=== PATIENT | female | born 1995 ===

== ENCOUNTER 2025-03-23 09:00 | Inpatient (IN) | payer OTHER ==
[~2025-03-23] VITALS: Ht 165.1 cm; Wt 60.3 kg
[2025-03-23 13:10] VITALS: BP 94/59
[2025-03-23] MEDS ORDERED: LAMO25 PO (13:26)
[2025-03-23] MEDS ORDERED: LORA.5 PO (13:27)
[2025-03-23] MEDS ORDERED: ONDA4 PO (13:27)
[2025-03-23 14:10] VITALS: BP 94/59
[2025-03-23] MEDS ORDERED: Aluminum Hydroxide 320MG/5ML 473 ML PO PRN (15:00)
[2025-03-23] MEDS ORDERED: FLU VACC TS2025-26(6MOS UP)/PF 45 MCG/0.5 ML SYRINGE IM SCH (15:00)
[2025-03-23] MEDS ORDERED: Ondansetron 4 MG SoluTab MM PRN (15:05)
[2025-03-23] MEDS ORDERED: Polyethylene Glycol 3350 17 gm PO PRN (15:05)
--- NOTE | 2025-03-23 15:16 | NUR ---
ADMISSION NOTE: PT ARRIVED TO [facility] VIA TRANSPORT WITH [employer]. BELONGINGS CHECKED IN AND SECURED BY OSWALDO VOSS. 2 RN SKIN CHECK COMPLETED AND PT WAS DRESSED IN TO UNIT SCRUBS. SHE APPEARS TO BE WELL GROOMED AND HAS APPROPRIATE EYE CONTACT. PT STATES THAT SHE HAS BEEN WEANING OFF LAMICTAL AND WAS DOING OK UNTIL THE LAST COUPLE OF WEEKS. REPORTS INCREASED ANGER AND INTRUSIVE THOUGHTS. SHE STATES THAT SHE IS ABLE TO CONTROL THE THOUGHTS BUT IS CONCERNED THAT SHE MIGHT NOT ALWAYS BE TO. STATES THAT SHE HAS URGES TO BANG HER HEAD ON THINGS BUT HASN'T ACTED ON IT. SHE STATES THAT SHE HAS LIVES WITH HER AND 3 YOUNG CHILDREN. STATES THAT SHE HAS HAD THOUGHTS OF DRIVING HER CAR OFF THE ROAD WHILE HER KIDS WERE WITH HER BUT STATES THAT SHE DOESN'T WANT TO HURT THEM AND WOULDN'T ACT ON THE THOUGHTS. SHE CURRENTLY DENIES ANY INTENTION OF SELF HARM OR PLAN TO ACT ON ANY THOUGHTS. PT ORIENTED TO THE UNIT AND HER ROOM. Q 15 MINUTE CHECKS FOR SAFETY PER UNIT PROTOCOL.
[2025-03-23 20:08] VITALS: BP 104/62
--- NOTE | 2025-03-24 04:16 | NUR ---
SHIFT SUMMARY 29 YEAR-OLDFEDENNISE PRESENTS WELL GROOMED.SHE IS ALERT AND ORIENTED.SHE SPEAKS IN A CLEAR VOICE AND IN AN APPROPRIATE VOLUME.SHE IS ABLE TO MAKE AND KEEP EYE CONTACT DURING CONVERSATIONS. AT THE TIME OF HER ASSESSMENT,SHE DESCRIBED HER MOOD ANXIOUS. SHE ALSO DENIED SI, HI, AND AVTH AT THAT TIME.SHE ATTENDED SNACK AND DAY ROOM.SHE WAS COMPLIANT WITH CARE AND MEDICATION ADMINISTRATION.SHE RECEIVED THE FOLLOWING PRN MEDICATIONS: ATIVAN AT 1925 FOR ANXIETY. SHE CONTINUES TO BE MONITORED EVERY 15 MINUTES FOR WELLNESS AND SAFETY.
--- NOTE | 2025-03-24 04:16 | NUR ---
PRN NOTE PATIENT RECEIVED THE FOLLOWING PRN MEDICATIONS: ATIVAN 0.5MG AT 1925 FOR ANXIETY.
[2025-03-24] MEDS ORDERED: Multivitamins 1 Tab PO SCH (09:00)
[2025-03-24 09:07] VITALS: BP 114/66
--- NOTE | 2025-03-24 12:09 | NUR ---
PRN MEDICATION PT REPORTED NAUSEA AND THOUGHT IT MAY BE RELATED TO ANXIETY. GAVE PT PRN ZOFRAN (SEE EMR). PT'S ANXIETY CONTINUED TO INCREASE AND MASS SCORE OF 16 (SEE MASS DOCUMENTATION). GAVE PT PRN ATIVAN (PLEASE SEE EMR).
--- NOTE | 2025-03-24 13:11 | NUR ---
Upon receiving a referral for spiritual care, I visited the patient. She immediately tells me about her struggles with bipolar and excessive bout of anger and SI. She then tells me about her spiritual journey, away from Je[employer] and toward Alevism and that near the time of the of her 2 y/o child she had a conversion experience. She tells that this new danielle life style has given her some new ways of managing her mental illness but has also brought questions about, "God's thoughts about medications used to aid in mental illness and even uncontrolled mental issues." I explored her spiritual beliefs and then provided theological insights and scriptures that support using the God given tools and expertise that are extended to us. As we looked at the human condition and God's role with us we discovered His rich plan of healing is seen in therapy, medications, support groups and many other modalities. I provided therapeutic listening, gentle family counselor and prayer. The patient responded well and showed signs of greater peace about her path moving forward.
--- NOTE | 2025-03-24 17:25 | NUR ---
SHIFT SUMMARY PT A/O X4; PLEASANT AND COOPERATIVE WITH CARE. SHE DENIES SI, HI, AVTH. PT ADMITS THAT SHE HAS THOUGHT MORE ABOUT SUICIDE IN GENERAL BECAUSE SHE IS ASKED ABOUT IT MORE, BUT DOES NOT WANT TO KILL HERSELF NOR DOES SHE HAVE A PLAN TO DO SO. PT CONCERNED ABOUT HER MEDICATIONS AND REPORTS THAT SHE DOES NOT LIKE TO TAKE MEDICATIONS IN GENERAL. PT REPORTS NOT FEELING WELL AND INCREASED FEELINGS OF ANXIETY. TREATED PER EMR WITH GOOD EFFECT *SEE EMR. LITHIUM DC'D AND PT STARTED ON LAMICTAL AND ABILIFY. PT PROVIDED WITH EDUCATED ON NEW MEDICATIONS SINCE SHE HAS CONCERNS. AFFECT IS CONGRUENT TO STATED MOOD AND SPEECH CAN BE FAST AT TIMES. SHE INTERACTS APPROPRIATELY WITH PEERS AND IS ROUNDED ON Q15 PER UNIT PROTOCOL FOR SAFETY AND WELLNESS.
[2025-03-24 20:09] VITALS: BP 103/59
--- NOTE | 2025-03-25 04:23 | NUR ---
SHIFT SUMMARY PT PRESENT IN GROUP ROOM WATCHING TV WITH PEERS AT START OF SHIFT. SHE REPORTS HER MOOD "GOOD, BUT I FEEL FRUSTRATED, ANXIOUS AND I GET SO MAD AT THINGS I SHOULDN'G GET MAD ABOUT." SHE APPEARS ANGRY, ANXIOUS AND IRRITABLE DURING ASSESSMENT. SHE DENIES ANY SI, HI, THOUGHTS OF SELF HARM OR AVTH. SHE RATES HER DEPRESSION AT 7/10 AND ANXIETY AT 10/10, REQUESTED AND RECEIVED PRN ATIVAN 0.5 MG PO AT 1939. PT INTERACTS WELL WITH PEERS. SHE REPORTED NAUSEA AND REQUESTED AND RECEIVED PRN ZOFRAN AT 2027. SHE HAD EVENING SNACK AND WATCHED TV. PRIOR TO BEDTIME PT REQUESTED AND RECEIVED PRN TRAZODONE X1 TO ASSIST WITH SLEEPING. SHE HAS REMAINED IN BED THROUGHOUT THE NIGHT. Q15 MINUTE CHECKS TO CONTINUE PER PT SAFETY AND WELLNESS.
--- NOTE | 2025-03-25 08:31 | NUR ---
SPOKE WITH PCP OFFICE BY PHONE, SHE SEES HONG LINDSAY NP, SHE HAD AN APPOINTMENT SCHEDULED BUT WE RESCHEDULED A FOLLOW UP APPOINTMENT FOR MondayMarch AT 11AM. DISCHARGE PLANNING TEAM CAN BE REACHED AT [phone] DISCHARGE SUMMARY CAN BE FAXED TO THEM AT [phone].
[2025-03-25 08:49] VITALS: BP 111/67
--- NOTE | 2025-03-25 12:12 | NUR ---
PRN MEDICATION PT REQUESTING ZOFRAN FOR NAUSEA. PT REPORTS THAT SHE IS CHRONICALLY NAUSEOUS AND TAKES ZOFRAN DAILY AT HOME. SHE ATTRIBUTES NAUSEA TO ANXIETY WELL. PT REQUESTING ATIVAN. MASS SCORE COMPLETED, SEE MASS DOCUMENTATION. ZOFRAN AND ATIVAN GIVEN.
--- NOTE | 2025-03-25 14:34 | NUR ---
I had a lengthy visit with Briana as she is trying work out how her spiritual beliefs and her mental illness can co-exist and also how her danielle works out in her parenting, marriage and faults. She exhibits spiritual distress but appears to be (at least ib the moment) be easily moved toward the peace, love and forgiveness that is at the core of her belief system. I normalized her fears and feelings, reinforced helpful attitudes and practices and provided therapeutic listening, spiritual guidance and prayer. She responded well and showed signs catharsis and greater peace.
--- NOTE | 2025-03-25 17:19 | NUR ---
SHIFT SUMMARY PT A/O X4; PLEASANT AND COOPERATIVE WITH CARE. SHE DENIES SI, HI, AVTH. PT TOOK NEW MEDICATIONS THIS MORNING AND HAS NOT REPORTED ANY NEGATIVE EFFECTS. PT MEDICATED PER EMR FOR NAUSEA AND ANXIETY WITH GOOD EFFECT. PLEASE SEEN EMR AND MASS DOCUMENTATION. PT STATES THAT SHE EXPERIENCES NAUSEA OFTEN A RESULT OF HER ANXIETY AND SHE TAKES ZOFRAN ALMOST DAILY. HER SPEECH IS FAST AND HER AFFECT IS EUTHYMIC. SHE ATTENDED ALL GROUPS AND MEALS THIS SHIFT.
[2025-03-25 19:03] VITALS: BP 95/65
--- NOTE | 2025-03-26 05:13 | NUR ---
SHIFT SUMMARY PATIENT UP IN [place] VISITING WITH STAFF AND PEERS. DENIES SI, HI, OR AVTH. VERBALIZED THAT SHE FEELS THAT THE INTRUSIVE THOUGHTS HAVE DECREASED. CONTINUES TO HAVE ANXIETY THAT COMES AND GOES, VERBALIZED THAT SHE HAS NAUSEA WITH THE INCREASE IN ANXIETY. REQUESTING TRAZODONE FOR SLEEP AID. AT 0220 PATIENT AWAKE UP TO NURSES DESK WITH C/O NAUSEA AND ANXIETY, ALSO C/O SORE THROAT AND POSSIBILITY OF CATCHING A HEAD COLD. ATIVAN 0.5MG, ZOFRAN, AND TYLENOL GIVEN. PATIENT FALLING BACK TO SLEEP RESP EVEN AND UNLABORED. CONTINUE TO MONITOR Q15MIN
[2025-03-26 08:46] LABS: CHOL/HDL RATIO 3.0; Cholesterol 163 mg/dL (50-200); HDL Cholesterol 55 mg/dL (>39); LDL/HDL RATIO 1.6; Low Density Lipoprotein Chol 90 mg/dL (0-110); Triglycerides 88 mg/dL (30-140); Very Low Density Lipoprot Chol 17 mg/dL (6-28)
[2025-03-26 08:49] VITALS: BP 96/58
--- NOTE | 2025-03-26 10:52 | NUR ---
SHIFT ASSESSMENT: PT IS ALERT, ORIENTED AND COOPERATIVE WITH CARE. SHE DENIES SI, HI AND AVH. STATES THAT HER MOOD IS BETTER, "I'M DOING MUCH BETTER THAN WHEN I GOT HERE". SHE STATES THAT SHE IS GLAD THAT SHE STAYED AND IS GRATEFUL FOR THE HELP SHE HAS GOTTEN HERE. SHE APPEARS WELL GROOMED AND HAS APPROPRIATE EYE CONTACT. SHE HAS BEEN COMPLIANT WITH MEDICATIONS, ATTENDED AM GROUP AND BREAKFAST. SHE SPOKE WITH DR. ANGEL AND IS LOOKING FORWARD TO DISCHARGING 03/27. SHE REQUESTED TO CALL HER TO TO UPDATE HIM ON DISHARGE PLANS FOR TOMORROW AND WAS PROVIDED WITH THE PHONE. PT MONITORED WITH Q 15 MIN CHECKS FOR SAFETY PER UNIT PROTOCOL.
--- NOTE | 2025-03-26 17:29 | NUR ---
SHIFT SUMMARY: PT REMAINED ALERT, ORIENTED AND COOPERATIVE WITH CARE. SHE ATTENDED GROUPS AND MEALS. SHE WAS ACTIVE IN THE UNIT [place], WATCHING TV, TALKING WITH PEERS AND PLAYING CARDS. NO ACUTE CHANGES FROM SHIFT ASSESSMENT. MONITORED WITH Q 15 MIN SAFETY CHECKS PER UNIT PROTOCOL.
[2025-03-26] MEDS ORDERED: DEXTROMETHORPHAN/BENZOCAINE 1 EACH LOZENGE MT PRN (17:35)
[2025-03-26 19:16] VITALS: BP 98/73
--- NOTE | 2025-03-27 04:34 | NUR ---
SHIFT SUMMARY PATIENT UP IN [place] VISITING WITH STAFF AND PEERS. VERBALIZED THAT SHE IS FEELING "BEST I HAVE FELT" DENIES SI, HI, OR AVTH. AFTER SNACK PATIENT C/O ANXIETY STARTING WITH MASS 3 AND REQUESTING ATIVAN, WITH GOOD RELIEF. REQUESTING TRAZODONE FOR SLEEP AID. PATIENT SLEEPING WELL UNTIL APROX 0330 WHEN WOKEN UP BY OTHER PATIENT. PATIENT ABLE TO GO BACK TO SLEEP AFTER REASSURANCE FROM STAFF. PATIENT NOW SLEEPING RESP EVEN AND UNLABORED. CONTINUE TO MONITOR Q15MIN.
[2025-03-27 07:33] VITALS: BP 99/76
--- NOTE | 2025-03-27 11:38 | NUR ---
IMORTANT DISCHARGE INFORMATION PATIENT TO BE DISCHARGED TODAY AROUND 1:30PM. HER SPOUSE "VIVIANA" IS COMING TO PICK HER UP. HIS PHONE NUMBER IS: [phone]. FOLLOW UP WITH PCP DR. LINDSAY ON 04/14/25 AT 2:45 PM. FOLLOW UP WITH [address] [facility] ON 04/01/25 AT 8:30AM VIA TELEHEALTH. FOLLOW UP WITH NICKIE ZAIDI FOR COUNSELING AT [facility] ON 04/10/25 AT 9AM. PHARMACY: [facility] [phone]
[2025-03-27] MEDS ORDERED: ABILIFY MYCITE5 M1 PO (11:52)
--- NOTE | 2025-03-27 13:04 | NUR ---
DISCHARGE NOTE: PT DISCHARGED HOME. SHE DENIED SI, HI AND AVH. SHE STATED THAT SHE WAS LOOKING FORWARD TO DISHARGING HOME. RX FAXED TO HER PHARMACY OF CHOICE. PT BELONGINGS RETURNED BY SHANIKA PINEDO. PT PROVIDED WITH DISCHARGE INSTRUCTIONS. STATED UNDERSTANDING OF DISCHARGE INSTRUCTIONS AND DENIED QUESTIONS. HER ARRIVED FOR TRANSPORT. SHE AMBULATED OUT OF THE UNIT WITHOUT DIFFICULTY, DISHARGE INSTRUCTIONS AND BELONGINGS IN HAND.
== END 2025-03-27 13:05 | disposition home or self-care (01) | DRG 885 ==
LOC: BHU 09:00
PROVIDERS: ADMIT Psychiatry & Neurology Psychiatry
DX: F31.4 Bipolar disorder, current episode depressed, severe, without psychotic features (principal); R45.851 Suicidal ideations; K21.9 Gastro-esophageal reflux disease without esophagitis; Z98.890 Other specified postprocedural states; Z88.8 Allergy status to other drugs, medicaments and biological substances; Z79.899 Other long term (current) drug therapy; Z28.21 Immunization not carried out because of patient refusal
CPT/HCPCS: 36415; 80061; 83036; A9270